=== PATIENT | female | born 1960 | race African-American/Black ===

== ENCOUNTER 2018-02-01 23:47 | Observation (INO) ==
[2018-02-02] MEDS ORDERED: ONDANSETRON 4 MG/2 ML VIAL IV STA (00:27)
[2018-02-02] MEDS ORDERED: hydrALAZINE 20 MG/1 ML VIAL IV STA (00:31)
[2018-02-02 00:51] LABS: Basophils # 0.1 10*3/uL (0.0-0.2); Basophils % 0.8 % (0.0-0.8); Eosinophils # 0.1 10*3/uL (0.0-0.87); Eosinophils % 1.3 % (0.00-10.9); Hematocrit 40.3 VOL% (35.7-47.0); Hemoglobin 12.4 GM/DL (12.0-16.0); Immature Granulocytes % 0.8 %; Immature Granulocytes Absolute 0.06 #; Lymphocytes # 2.8 10*3/uL (1.4-4.0); Lymphocytes % 37.7 % (21.3-54.2); Mean Corpuscular HGB Conc 30.8 GM/DL (32-36); Mean Corpuscular Hemoglobin 25 PG (27-34); Mean Corpuscular Volume 80.3 FL (87-102); Mean Platelet Volume 12.4 FL (9.6-12.0); Monocytes # 0.6 10*3/uL (0.11-0.8); Monocytes % 7.4 % (1.7-12.7); Neutrophils # 3.9 10*3/uL (1.4-7.4); Platelet Count 218 T/CUMM (130-400); Red Blood Count 5.02 MC/CUMM (3.8-5.5); Red Cell Distribution Width 15.3 % (9.3-17.3); White Blood Count 7.4 T/CUMM (4-12)
[2018-02-02 00:59] LABS: Bilirubin,Total 0.4 MG/DL (0.2-1.0); Calcium 8.3 MG/DL (8.5-10.1); Osmolality,Calculated 282.4 MOS/KG (273-304); Thyroid Stimulating Hormone 2.78 uIU/ml (0.358-3.74); Total Protein 8.7 G/DL (6.4-8.3)
[2018-02-02] MEDS ORDERED: niCARdipine 25 MG/10 ML VIAL IV ONE (01:04)
[2018-02-02] MEDS: niCARdipine INJ 25 MG in SODIUM CHLORIDE 0.9% 240 ML IV PRN ×3 (01:11→08:45)
[2018-02-02] MEDS ORDERED: POTASSIUM CHLORIDE 20 MEQ TABLET PO STA (01:30)
[2018-02-02] MEDS ORDERED: ACETAMINOPHEN 325 MG TABLET PO PRN (03:20)
[2018-02-02] MEDS ORDERED: ONDANSETRON 4 MG/2 ML VIAL IV PRN (03:20)
[2018-02-02 08:11] LABS: Osmolality,Calculated 283.3 MOS/KG (273-304); Potassium 3.3 MMOL/L (3.5-5.1); Risk Ratio 3.73; VLDL CHOLESTEROL 11.6 MG/DL
[2018-02-02] MEDS: LOSARTAN 25 MG TABLET PO SCH (08:19)
[2018-02-02] MEDS: amLODIPine 5 MG TABLET PO SCH (08:19)
[2018-02-02] MEDS ORDERED: cloNIDine 0.1 MG TABLET PO PRN (09:36)
[2018-02-02 09:40] LABS: Apearance,Urine CLEAR (Clear); Bacteria,Urine Occasional /HPF (Few); Bilirubin,Urine Negative (Negative); Blood, Urine Negative (Negative); Glucose,Urine (UA) 150 mg/dL (Negative); Ketones,Urine Negative (Negative); Nitrite,Urine Negative (Negative); Protein,Urine Negative; RBC,Urine 2 /HPF (0-4); Squamous Epithelial Cell,Urine Occasional /HPF (0-10); Urine Color Straw (Yellow); Urine Specific Gravity 1.009 (1.001-1.035); Urine Urobilinogen < 2.0 EU/DL (0.2-1.0); WBC,Urine 1 /HPF (0-6)
[2018-02-02] MEDS: CARVEDILOL 6.25 MG TABLET PO SCH ×2 (09:47→21:31)
[2018-02-02] MEDS: POTASSIUM CHLORIDE 20 MEQ TABLET PO SCH ×2 (09:47→19:02)
[2018-02-03 03:41] LABS: Basophils % 0.4 % (0.0-0.8); Eosinophils # 0.1 10*3/uL (0.0-0.87); Eosinophils % 1.6 % (0.00-10.9); Hematocrit 37.4 VOL% (35.7-47.0); Hemoglobin 11.3 GM/DL (12.0-16.0); Immature Granulocytes % 0.5 %; Immature Granulocytes Absolute 0.04 #; Lymphocytes # 2.6 10*3/uL (1.4-4.0); Mean Corpuscular HGB Conc 30.2 GM/DL (32-36); Mean Corpuscular Hemoglobin 25 PG (27-34); Mean Platelet Volume 11.4 FL (9.6-12.0); Monocytes # 0.6 10*3/uL (0.11-0.8); Monocytes % 8.6 % (1.7-12.7); Neutrophils % 53.9 % (38.7-73.9); Platelet Count 201 T/CUMM (130-400); Red Blood Count 4.62 MC/CUMM (3.8-5.5); Red Cell Distribution Width 15.7 % (9.3-17.3); White Blood Count 7.4 T/CUMM (4-12)
[2018-02-03 04:02] LABS: Calcium 8.2 MG/DL (8.5-10.1); Osmolality,Calculated 279.4 MOS/KG (273-304); Potassium 3.6 MMOL/L (3.5-5.1)
[2018-02-03] MEDS: amLODIPine 5 MG TABLET PO SCH (08:11)
[2018-02-03] MEDS: LOSARTAN 25 MG TABLET PO SCH (08:12)
[2018-02-03] MEDS: CARVEDILOL 6.25 MG TABLET PO SCH (08:12)
[2018-02-03] MEDS ORDERED: CARVEDILOL 12.5 MG TABLET PO SCH (09:10)
[2018-02-03] MEDS ORDERED: amLODIPine 10 MG TABLET PO SCH (09:10)
[2018-02-03] MEDS: LISINOPRIL/HCTZ 20-25 MG TABLET PO SCH (16:38)
[2018-02-03] MEDS: hydrALAZINE 25 MG TABLET PO SCH ×2 (16:39→20:57)
[2018-02-03] MEDS: CARVEDILOL 25 MG TABLET PO SCH (20:57)
[2018-02-04] MEDS: LISINOPRIL/HCTZ 20-25 MG TABLET PO SCH (09:14)
[2018-02-04] MEDS: CARVEDILOL 25 MG TABLET PO SCH (09:15)
[2018-02-04] MEDS: hydrALAZINE 25 MG TABLET PO SCH (09:15)
[2018-02-04 11:39] VITALS: BP 132/80
== END 2018-02-04 11:57 | disposition home or self-care (01) ==
LOC: N.ED 23:47 → N.EDINP 23:47 → SUATTDRO 02-02 03:02 → N.CC 02-02 03:15 → N.4E 02-02 15:10
PROVIDERS: ADMIT Internal Medicine; ATTEND Hospitalist

== ENCOUNTER 2018-02-06 13:24 | Observation (INO) ==
[2018-02-06] MEDS ORDERED: methylPREDNISolone SOD SUC 125 MG/2 ML VIAL IV STA (13:48)
[2018-02-06] MEDS ORDERED: FAMOTIDINE 20 MG/2 ML VIAL IV STA (13:48)
[2018-02-06] MEDS ORDERED: diphenhydrAMINE 50 MG/1 ML VIAL IV STA (13:48)
[2018-02-06] MEDS ORDERED: diphenhydrAMINE CAP 50 MG CAPSULE ONE (14:20)
[2018-02-06] MEDS ORDERED: diphenhydrAMINE CAP 50 MG CAPSULE PO STA (14:20)
[2018-02-06 14:22] LABS: Basophils # 0.1 10*3/uL (0.0-0.2); Basophils % 0.7 % (0.0-0.8); Eosinophils # 0.1 10*3/uL (0.0-0.87); Eosinophils % 1.4 % (0.00-10.9); Hematocrit 36.5 VOL% (35.7-47.0); Hemoglobin 11.9 GM/DL (12.0-16.0); Immature Granulocytes % 0.4 %; Immature Granulocytes Absolute 0.03 #; Lymphocytes # 1.8 10*3/uL (1.4-4.0); Lymphocytes % 24.1 % (21.3-54.2); Mean Corpuscular HGB Conc 32.6 GM/DL (32-36); Mean Corpuscular Hemoglobin 26 PG (27-34); Mean Corpuscular Volume 79.5 FL (87-102); Mean Platelet Volume 11.1 FL (9.6-12.0); Monocytes # 0.7 10*3/uL (0.11-0.8); Monocytes % 9.9 % (1.7-12.7); Neutrophils # 4.7 10*3/uL (1.4-7.4); Neutrophils % 63.5 % (38.7-73.9); Platelet Count 213 T/CUMM (130-400); Red Blood Count 4.59 MC/CUMM (3.8-5.5); Red Cell Distribution Width 15.5 % (9.3-17.3); White Blood Count 7.4 T/CUMM (4-12)
[2018-02-06 14:46] LABS: Calcium 8.7 MG/DL (8.5-10.1); Osmolality,Calculated 285.5 MOS/KG (273-304); Potassium 3.2 MMOL/L (3.5-5.1)
[2018-02-06] MEDS ORDERED: hydrALAZINE 20 MG/1 ML VIAL IV STA ×2 (14:50→16:16)
[2018-02-06] MEDS ORDERED: ONDANSETRON 4 MG/2 ML VIAL IV PRN (15:43)
[2018-02-06] MEDS ORDERED: ACETAMINOPHEN 325 MG TABLET PO PRN (15:43)
[2018-02-06] MEDS ORDERED: PROMETHAZINE 25 MG/1 ML VIAL IM PRN (15:43)
[2018-02-06] MEDS ORDERED: POTASSIUM CHLORIDE RIDER 10 MEQ in PREMIX 1 EACH IV PRN (15:46)
[2018-02-06] MEDS ORDERED: LABETALOL 20 MG/4 ML SYRINGE IV STA (15:48)
[2018-02-06] MEDS ORDERED: hydrALAZINE 20 MG/1 ML VIAL IV PRN (15:49)
[2018-02-06] MEDS ORDERED: MORPHINE 4 MG/1 ML VIAL ONE (15:54)
[2018-02-06] MEDS: ENOXAPARIN 40 MG/0.4 ML SYRINGE SUBCUT SCH ×2 (16:38→17:33)
[2018-02-06] MEDS: amLODIPine 10 MG TABLET PO SCH (16:39)
[2018-02-06] MEDS ORDERED: LABETALOL 100 MG/20 ML VIAL IV ONE (18:09)
[2018-02-06] MEDS ORDERED: LABETALOL 20 MG/4 ML SYRINGE IV PRN (18:10)
[2018-02-06] MEDS ORDERED: SODIUM CHLORIDE 0.9% 1,000 ML IV PRN (18:16)
[2018-02-06] MEDS: POTASSIUM CHLORIDE 20 MEQ TABLET PO PRN ×3 (18:39→23:24)
[2018-02-06] MEDS ORDERED: DOXAZOSIN 4 MG TABLET PO SCH (21:00)
[2018-02-06] MEDS: DOXAZOSIN 4 MG TABLET PO SCH (21:13)
[2018-02-06] MEDS: CARVEDILOL 25 MG TABLET PO SCH (21:13)
[2018-02-06] MEDS: SPIRONOLACTONE 25 MG TABLET PO SCH (21:13)
[2018-02-07] MEDS: POTASSIUM CHLORIDE 20 MEQ TABLET PO PRN (01:45)
[2018-02-07 06:15] LABS: Basophils % 0.1 % (0.0-0.8); Hematocrit 33.2 VOL% (35.7-47.0); Hemoglobin 10.6 GM/DL (12.0-16.0); Immature Granulocytes % 0.7 %; Immature Granulocytes Absolute 0.05 #; Lymphocytes # 1.1 10*3/uL (1.4-4.0); Lymphocytes % 15.4 % (21.3-54.2); Mean Corpuscular HGB Conc 31.9 GM/DL (32-36); Mean Corpuscular Hemoglobin 25 PG (27-34); Mean Corpuscular Volume 78.7 FL (87-102); Mean Platelet Volume 11.6 FL (9.6-12.0); Monocytes # 0.2 10*3/uL (0.11-0.8); Monocytes % 2.9 % (1.7-12.7); Neutrophils # 5.5 10*3/uL (1.4-7.4); Neutrophils % 80.9 % (38.7-73.9); Platelet Count 211 T/CUMM (130-400); Red Blood Count 4.22 MC/CUMM (3.8-5.5); Red Cell Distribution Width 15.4 % (9.3-17.3); White Blood Count 6.8 T/CUMM (4-12)
[2018-02-07 06:33] LABS: Albumin 3.5 G/DL (3.4-5.0); Bilirubin,Total 0.7 MG/DL (0.2-1.0); Calcium 8.6 MG/DL (8.5-10.1); Osmolality,Calculated 285.5 MOS/KG (273-304); Potassium 3.5 MMOL/L (3.5-5.1); Total Protein 7.7 G/DL (6.4-8.3)
[2018-02-07 06:52] LABS: % Iron Saturation 14.6 % (18-50); Ferritin 157.6 ng/ml (8-252)
[2018-02-07] MEDS: DOXAZOSIN 4 MG TABLET PO SCH (09:31)
[2018-02-07] MEDS: SPIRONOLACTONE 25 MG TABLET PO SCH (09:31)
[2018-02-07] MEDS: amLODIPine 10 MG TABLET PO SCH (09:32)
[2018-02-07] MEDS: CARVEDILOL 25 MG TABLET PO SCH ×2 (09:32→17:55)
[2018-02-07] MEDS: PANTOPRAZOLE 40 MG TABLET PO SCH (09:32)
[2018-02-07] MEDS: ENOXAPARIN 40 MG/0.4 ML SYRINGE SUBCUT SCH (17:55)
[2018-02-07] MEDS: CARVEDILOL 12.5 MG TABLET PO SCH (19:44)
[2018-02-07] MEDS ORDERED: BISACODYL 5 MG TABLET PO PRN (20:41)
[2018-02-08 06:30] LABS: Basophils % 0.4 % (0.0-0.8); Eosinophils % 0.1 % (0.00-10.9); Hematocrit 34.4 VOL% (35.7-47.0); Hemoglobin 10.8 GM/DL (12.0-16.0); Immature Granulocytes % 0.5 %; Immature Granulocytes Absolute 0.04 #; Lymphocytes # 2.5 10*3/uL (1.4-4.0); Lymphocytes % 29.8 % (21.3-54.2); Mean Corpuscular HGB Conc 31.4 GM/DL (32-36); Mean Corpuscular Hemoglobin 25 PG (27-34); Mean Platelet Volume 11.8 FL (9.6-12.0); Monocytes # 0.8 10*3/uL (0.11-0.8); Monocytes % 9.3 % (1.7-12.7); Neutrophils # 5.1 10*3/uL (1.4-7.4); Neutrophils % 59.9 % (38.7-73.9); Platelet Count 224 T/CUMM (130-400); Red Cell Distribution Width 15.7 % (9.3-17.3); White Blood Count 8.5 T/CUMM (4-12)
[2018-02-08 07:05] LABS: Albumin 3.4 G/DL (3.4-5.0); Bilirubin,Total 0.5 MG/DL (0.2-1.0); Calcium 8.2 MG/DL (8.5-10.1); Osmolality,Calculated 289.5 MOS/KG (273-304); Potassium 3.2 MMOL/L (3.5-5.1); Total Protein 7.4 G/DL (6.4-8.3)
[2018-02-08] MEDS ORDERED: glipiZIDE 5 MG TABLET PO SCH (07:30)
[2018-02-08] MEDS ORDERED: SPIRONOLACTONE 25 MG TABLET PO SCH (09:00)
[2018-02-08] MEDS: amLODIPine 10 MG TABLET PO SCH (09:17)
[2018-02-08] MEDS: CARVEDILOL 12.5 MG TABLET PO SCH (09:17)
[2018-02-08] MEDS: POTASSIUM CHLORIDE 20 MEQ TABLET PO PRN (09:19)
[2018-02-08] MEDS: PANTOPRAZOLE 40 MG TABLET PO SCH (09:19)
[2018-02-08 10:22] VITALS: BP 140/74
== END 2018-02-08 10:43 | disposition home or self-care (01) ==
LOC: N.EDINP 13:24 → N.ED 13:24 → N.2E 16:45
PROVIDERS: ADMIT Hospitalist; ATTEND Hospitalist